=== PATIENT | male | born 1985 | race African-American/Black ===

== ENCOUNTER 2016-10-03 02:14 | Emergency (ER) | payer BC, OTHER ==
[2016-10-03 02:54] LABS: ALBUMIN 4.6 g/dl (3.3-4.9); POTASSIUM 4.3 mmol/L (3.5-5.1)
[2016-10-03 02:56] LABS: CREATININE 1.1 mg/dl (0.61-1.24); RED BLOOD COUNT 4.72 10^6/ul (4.70-6.10); WHITE BLOOD COUNT 6.2 10^3/ul (4.8-10.8)
[2016-10-03 02:57] LABS: ALBUMIN/GLOBULIN RATIO 1.24; BASOPHILS % 0.3 % (0.0-2.0); BILIRUBIN,INDIRECT 0.4 mg/dl (0-1.1); BILIRUBIN,TOTAL 0.4 mg/dl (0.2-1.3); CALCIUM 9.8 mg/dl (8.4-10.2); EOSINOPHILS % 0.5 % (0.0-7.0); HEMATOCRIT 41.2 % (42.0-52.0); HEMOGLOBIN 16.5 g/dl (14.0-18.0); LYMPHOCYTES # 2.7 10^3/ul (0.8-2.9); LYMPHOCYTES % 43.7 % (15.0-51.0); MEAN CORPUSCULAR VOLUME 87.3 fl (82.0-101.0); MEAN PLATELET VOLUME 9.7 fl (7.4-10.4); MONOCYTE # 0.5 10^3/ul (0.3-0.9); MONOCYTES % 7.4 % (0.0-11.0); NEUTROPHILS % 47.9 % (39.0-77.0); PLATELET COUNT 219 10^3/UL (140-440); RED CELL DISTRIBUTION WIDTH 13.4 % (11.5-14.5); TOTAL PROTEIN 8.3 g/dl (6.1-8.1)
--- NOTE | 2016-10-03 03:20 | ERD ---
ER Documentation Chief Complaint Date/Time DATE: 10/03/16 TIME: 03:20 Chief Complaint HPI Otherwise healthy 30-year-old states he is worried about his liver enzymes. He denies symptoms. ROS All systems reviewed and are negative except as per history of present illness. PMhx/Soc Smoking Status: Never smoker FmHx Family History: No diabetes Physical Exam Physical Exam GENERAL: Well-developed, well-nourished, well-hydrated, in no apparent distress , looks nontoxic in appearance HEENT: Moist mucous membranes, pink conjunctiva, no cervical spine tenderness or step-off deformities, no goiter, no jaundice or icterus, extraocular movements intact without pain. No submandibular induration, and no pharyngeal erythema NEURO: Alert and oriented 3, cranial nerves II through XII intact bilaterally, pupils equal round reactive to light, no focal deficits or facial asymmetry, sensation intact distally Strength 5/5 in upper and lower extremities bilaterally CARDIAC: Regular rate and rhythm, no murmurs rubs or gallops LUNGS: Clear bilaterally no wheezing crackles or stridor ABDOMEN: Soft nontender, no guarding, no rigidity, no rebound, no psoas sign no obturator sign. Normoactive bowel sounds SKIN: Warm and dry to touch, no abrasions, contusions, or hematomas, no lacerations, no ecchymosis, no target lesions, and without ulcers EXTREMITIES: No clubbing cyanosis or edema, calves are bilaterally symmetrical, no Homans sign, no popliteal cord sign. Distal pulses equal and bilateral PSYCH: Normal affect without agitation or irritability Result Diagram: 10/03/16 0231 10/03/16 0231 Results 24 hrs Laboratory Tests Test 10/03/16 02:31 Alanine Aminotransferase (ALT/SGPT) 43IU/L Albumin 4.6g/dl Albumin/Globulin Ratio 1.24 Alkaline Phosphatase 77IU/L Anion Gap 19 Aspartate Amino Transf (AST/SGOT) 32IU/L Basophils # 0.010^3/ul Basophils % 0.3% Blood Urea Nitrogen 14mg/dl Calcium Level 9.8mg/dl Carbon Dioxide Level 27mmol/L Chloride Level 103mmol/L Creatinine 1.10mg/dl Direct Bilirubin 0.00mg/dl Eosinophils # 0.010^3/ul Eosinophils % 0.5% Globulin 3.70g/dl Glucose Level 89mg/dl Hematocrit 41.2% Hemoglobin 16.5g/dl Hemoglobin A1c 5.4% Indirect Bilirubin 0.4mg/dl Lipase 45U/L Lymphocytes # 2.710^3/ul Lymphocytes % 43.7% Mean Corpuscular Hemoglobin 35.0pg Mean Corpuscular Hemoglobin Concent 40.0g/dl Mean Corpuscular Volume 87.3fl Mean Platelet Volume 9.7fl Monocytes # 0.510^3/ul Monocytes % 7.4% Neutrophils # 3.010^3/ul Neutrophils % 47.9% Nucleated Red Blood Cells # 0.010^3/ul Nucleated Red Blood Cells % 0.0/100WBC Platelet Count 43344^3/UL Potassium Level 4.3mmol/L Red Blood Count 4.7210^6/ul Red Cell Distribution Width 13.4% Sodium Level 145mmol/L Total Bilirubin 0.4mg/dl Total Protein 8.3g/dl White Blood Count 6.210^3/ul Procedures/MDM CBC and electrolytes were within normal limits, liver function tests were normal. Patient feels much better at this time, and vital signs are normal, symptoms have improved. I did give strict instructions to return to the ED if symptoms continue or worsen, patient will otherwise follow-up with primary care physician. Patient understood instructions and agreed to plan. Departure Diagnosis: Primary Impression: Normal exam Condition: Good Patient Instructions: Normal Exam, (Child) (Adult) LILLIAN VU MD Oct 03, 2016 03:20
== END 2016-10-03 03:19 | disposition home or self-care (01) ==
LOC: E/R 02:14
DX: Z00.00 Encounter for general adult medical examination without abnormal findings (principal)
CPT/HCPCS: 80053; 83036; 83690; 85025; 99283